=== PATIENT | male | born 1995 | race Caucasian/White ===

== ENCOUNTER 2021-11-29 21:14 | Observation (INO) ==
[2021-11-29 21:53] LABS: BASOPHILS % (AUTO) 0.1 % (0.0-3.0); HEMATOCRIT 42.8 % (42.0-52.0); HEMOGLOBIN 15.3 g/dl (14.0-18.0); IMMATURE GRANULOCYTE # (AUTO) 0.1 (0.0-1.0); IMMATURE GRANULOCYTE % (AUTO) 0.4 % (0.0-5.0); LYMPHOCYTES # (AUTO) 1.1 K/uL (0.60-3.4); LYMPHOCYTES % (AUTO) 7.9 (10.0-50.0); MEAN CORPUSCULAR HGB CONC 35.7 (31.8-35.4); MEAN CORPUSCULAR VOLUME 83.9 fl (80.0-94.0); MONOCYTES # (AUTO) 0.7 K/uL (0.4-2.0); MONOCYTES % (AUTO) 4.9 (0-10); NEUTROPHILS # (AUTO) 12.5 K/ul (2.0-6.9); NEUTROPHILS % (AUTO) 86.7 % (42.2-75.2); PLATELET COUNT 318 10^3/uL (140-440); RDW COEFFICIENT OF VARIATION 13.4 % (11.6-14.8); WHITE BLOOD COUNT 14.39 K/ul (4.2-10.2)
[2021-11-29] MEDS ORDERED: SODIUM CHLORIDE 1,000 ML IV STA (21:57)
[2021-11-29 22:00] LABS: ALANINE AMINOTRANSFERASE 31.8 U/L (0-50); ALBUMIN 5.48 g/dL (3.5-5.0); ASPARTATE AMINO TRANSFERASE 71.5 U/L (17-59); BILIRUBIN,TOTAL 0.89 mg/dL (0.2-1.3); BLOOD UREA NITROGEN 29.9 mg/dL (9-20); CALCIUM 10.42 mg/dL (8.4-10.2); CARBON DIOXIDE 25.5 mmol/L (22-30.0); CHLORIDE 90.9 mmol/L (98-107); CREATINE KINASE 959.6 U/L (55-170); CREATININE 1.62 mg/dL (0.60-1.10); GLUCOSE 159.6 mg/dL (74-106); MAGNESIUM 2.19 mg/dL (1.6-2.3); POTASSIUM 3.87 mmol/L (3.5-5.1); TOTAL PROTEIN 10.04 g/dL (6.3-8.2)
--- NOTE | 2021-11-29 22:05 | ED.PDOC ---
General ED Provider: Dr. ANTONIO MCMANUS Chief Complaint: Extremity Pain/Injury Stated Complaint: Patient is a 25 year old male who comes to the ER with complaints of cramping mostly on the lower extremities bilaterally. Has not seen a doctor in years. 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 Time Seen by Provider: 11/29/21 21:28 Mode of Arrival: Wheelchair Information Source: Patient Nursing and Triage Documentation Reviewed and Agree: Yes Does patient meet sepsis criteria?: No System Inflammatory Response Syndrome: Not Applicable Sepsis Protocol: For patient's 13 years and over: Temp is 96.8 and below OR 101 and greater Pulse >90 BPM Resp >20/minute Acutely Altered Mental Status Are patient's symptoms suggestive of a new infection, such as: -Pneumonia -Skin, Soft Tissue -Endocarditis -UTI -Bone, Joint Infection -Implantable Device -Acute Abdominal Infection -Wound Infection -Meningitis -Blood Stream Catheter Infection -Unknown Musculoskeletal Complaint Exam Lower Extremity Complaint/Exam Location of Pain: Reports Right, Left and Leg Mechanism of Injury: Reports No known trauma Onset/Duration: 1 pm today Symptoms Are: Still present Onset of Pain: Reports Immediate Initial Severity: Moderate Current Severity: Moderate Location: Reports Diffuse Character: Reports Spasmodic Alleviating: Reports Position Aggravating: Reports Movement and Prolonged standing Able to Bear Weight: Yes Associated Signs and Symptoms: Reports Weakness; Denies Swelling, Redness, Bruising, Fever, Numbness or Tingling DVT Risk Factors: Denies Smoking or Prior DVT Lower Extremity Findings: Present Tenderness (visible fasiculations on the thighs with dorsiflexion. ); Absent Swelling, Ecchymosis, Blisters, Other joint pain or Foreign body NV Bundle Intact Distal to Injury: Yes Gerard's Sign Present: No Differential Diagnoses: Strain, Sprain and Other (muscle cramps. ) Review of Systems Review Of Systems Constitutional: Reports No symptoms Eyes: Reports No symptoms Ears, Nose, Mouth, Throat: Reports No symptoms Respiratory: Reports No symptoms Cardiac: Reports No symptoms GI: Reports No symptoms Musculoskeletal: Reports Back pain, Muscle pain and Muscle stiffness Skin: Reports No symptoms Neurological: Reports Anxiety Hematologic/Lymphatic: Reports No symptoms All Other Systems: Reviewed and Negative [facility] Medical History (Updated 11/30/21 @ 00:04 by ANTONIO MCMANUS MD) No known health problems Social History (Updated 11/29/21 @ 21:20 by RAMAN ONEAL RN) Smoking and tobacco status: Never smoker Surgical History (Updated 11/29/21 @ 21:20 by RAMAN ONEAL RN) H/O oral surgery Physical Exam Physical Exam Appearance: Reports Ill-appearing Ill-appearing: Mild Pain Distress: Moderate Eyes: Reports VIDHI, EOMI and Conjunctiva clear ENT: Reports Nose normal and Oropharynx normal Neck: Supple Respiratory: Reports Airway patent, Breath sounds clear, Breath sounds equal and Breath sounds diminished Cardiovascular: Reports RRR, Pulses normal, No rub and No murmur GI/: Reports Soft, Nontender, No masses and Bowel sounds normal Musculoskeletal: Reports Other (Cramping thigns with dorsiflexion) Skin: Reports Warm Neurological: Reports Motor intact Psychiatric: Reports Anxious Re-Evaluation Re-Evaluation Time of Re-Evaluation: 00:02 Status: Improved Vital Signs Stable: Yes Pain Level: much improved Critical Care Note Critical Care Note Total Critical Care Time (mins): 0 Course Course Hematology/Chemistry: 11/29/21 21:40 11/29/21 21:40 Orders, Labs, Meds: Lab Review 11/29/21 11/29/21 11/29/21 21:40 21:40 21:40 WBC 14.39 H RBC 5.10 Hgb 15.3 Hct 42.8 MCV 83.9 MCH 30.0 MCHC 35.7 H RDW Coeff of Gunner 13.4 Plt Count 318 Immature Gran % (Auto) 0.4 Neut % (Auto) 86.7 H Lymph % (Auto) 7.9 L [place] % (Auto) 4.9 Eos % (Auto) 0.0 Baso % (Auto) 0.1 Neut # (Auto) 12.5 H Lymph # (Auto) 1.1 [place] # (Auto) 0.7 Eos # (Auto) 0.0 Baso # (Auto) 0.0 Immature Gran # (Auto) 0.1 Sodium 133.0 L Potassium 3.87 Chloride 90.9 L Carbon Dioxide 25.5 Anion Gap 20.47 BUN 29.9 H Creatinine 1.62 H Estimated GFR (MDRD) 51.00 BUN/Creatinine Ratio 18.45 Glucose 159.6 H Hemoglobin A1c Calcium 10.42 H Magnesium 2.19 Total Bilirubin 0.89 AST 71.5 H ALT 31.8 Alkaline Phosphatase 62.0 Total Creatine Kinase 959.6 H CK-MB (CK-2) 6.960 H* CK-MB (CK-2) % 0.7200 Troponin I < 0.012 Total Protein 10.04 H Albumin 5.48 H Globulin 4.56 Albumin/Globulin Ratio 1.20 TSH 1.020 SARS CoV-2 RNA Rapid ALVIN 11/29/21 11/29/21 21:46 22:10 WBC RBC Hgb Hct MCV MCH MCHC RDW Coeff of Gunner Plt Count Immature Gran % (Auto) Neut % (Auto) Lymph % (Auto) [place] % (Auto) Eos % (Auto) Baso % (Auto) Neut # (Auto) Lymph # (Auto) [place] # (Auto) Eos # (Auto) Baso # (Auto) Immature Gran # (Auto) Sodium Potassium Chloride Carbon Dioxide Anion Gap BUN Creatinine Estimated GFR (MDRD) BUN/Creatinine Ratio Glucose Hemoglobin A1c 5.57 Calcium Magnesium Total Bilirubin AST ALT Alkaline Phosphatase Total Creatine Kinase CK-MB (CK-2) CK-MB (CK-2) % Troponin I Total Protein Albumin Globulin Albumin/Globulin Ratio TSH SARS CoV-2 RNA Rapid ALVIN Negative Orders Category Date Time Status CBC W/ AUTO DIFF Stat LAB 11/29/21 21:40 Completed COMPREHENSIVE METABOLIC PANEL Stat LAB 11/29/21 21:40 Completed CREATINE KINASE Stat LAB 11/29/21 21:40 Completed HEMOGLOBIN A1C Stat LAB 11/29/21 21:46 Completed MAGNESIUM Stat LAB 11/29/21 21:40 Completed SARS COV-2 RNA RAPID ALVIN Stat LAB 11/29/21 22:10 Completed TROPONIN I Stat LAB 11/29/21 21:40 Completed TSH [THYROID STIMULATING HORMONE] Stat LAB 11/29/21 21:40 Completed URINALYSIS C & S IF INDICATED Stat LAB 11/29/21 23:45 Received URINE DRUG SCREEN (RAPID FOR ED) [DRUG SCREEN, URINE, LAB 11/29/21 23:45 Received RAPID] Stat Sodium Chloride 0.9% [Sodium Chloride] 1,000 ml MEDS 11/29/21 21:57 Discontinued IV BOLUS Medications Generic Name Dose Route Start Last Admin Trade Name Freq PRN Reason Stop Dose Admin Acetaminophen 650 mg 11/29/21 23:49 Acetaminophen 325 Mg Tablet PO Q4H PRN Fever and Mild Pain Hydromorphone HCl 1 mg 11/29/21 23:49 Hydromorphone Hcl 1 Mg/Ml Syringe IVP Q8HR PRN Severe Pain Sodium Chloride 1,000 mls @ 150 mls/hr 11/29/21 23:45 Sodium Chloride IV .Q6H40M [facility] Ibuprofen 600 mg 11/29/21 23:49 Ibuprofen 600 Mg Tablet PO Q6H PRN Mild Pain Ondansetron HCl 4 mg 11/29/21 23:49 Ondansetron Hcl/Pf 4 Mg/2 Ml Sdv IVP Q6H PRN Nausea / Vomiting Discontinued Medications Generic Name Dose Route Start Last Admin Trade Name Freq PRN Reason Stop Dose Admin Sodium Chloride 1,000 mls @ 1,000 mls/hr 11/29/21 21:57 11/29/21 22:36 Sodium Chloride IV 11/29/21 22:56 1,000 mls/hr BOLUS STA Administration Vital Signs: Temp Pulse Resp BP Pulse Ox 11/29/21 21:14 99.0 F 79 18 146/89 H 97 Discharge Plan Discharge Patient Disposition: PLACED OBSERVATION Discharge Problem: Rhabdomyolysis, Acute dehydration, Acute renal failure ED Provider: ANTONIO MCMANUS Condition: Fair Physician Progress Note: []
[2021-11-29 22:12] LABS: TROPONIN I < 0.012 ng/ml (0.0000-0.120)
[2021-11-29] MEDS ORDERED: MOTRIN PO PRN (23:49)
[2021-11-29] MEDS ORDERED: ZOFRAN 4 MG/2 ML IVP PRN (23:49)
[2021-11-29] MEDS ORDERED: TYLENOL PO PRN (23:49)
[2021-11-29] MEDS ORDERED: DILAUDID 1 MG/ML SYRINGE IVP PRN (23:49)
[2021-11-30 00:06] LABS: BILIRUBIN,URINE Negative (NEGATIVE); CLARITY,URINE Clear (CLEAR); COLOR,URINE Yellow (YELLOW); GLUCOSE, URINE (UA) Negative (NEGATIVE); KETONES,URINE Trace (NEGATIVE); LEUKOCYTE ESTERASE ,URINE Negative (NEGATIVE); NITRITE,URINE Negative (NEGATIVE); PH,URINE 5.5 (5-9); PROTEIN,URINE Trace (NEGATIVE); URINE, BLOOD 1+ (NEGATIVE); UROBILINOGEN,URINE 0.2 (0.2)
[2021-11-30 00:07] LABS: MUCUS,URINE 2+ (NOT PRESENT)
[2021-11-30 00:08] LABS: AMPHETAMINE SCREEN,URINE NEGATIVE (NEGATIVE); BARBITURATE SCREEN,URINE NEGATIVE (NEGATIVE); BENZODIAZEPINES SCREEN,URINE NEGATIVE (NEGATIVE); CANNABINOID SCREEN,URINE POSITIVE (NEGATIVE); COCAIN SCREEN,URINE NEGATIVE (NEGATIVE); METHADONE URINE SCREEN NEGATIVE (NEGATIVE); METHAMPHETAMINES SCREEN,URINE NEGATIVE (NEGATIVE); OPIATE SCREEN,URINE NEGATIVE (NEGATIVE); OXYCODONE URINE SCREEN NEGATIVE (NEGATIVE); PHENCYCLIDINE SCREEN,URINE NEGATIVE (NEGATIVE); PROPOXYPHENE URINE SCREEN NEGATIVE (NEGATIVE); TRICYCLIC ANTIDEPRESSANTS URIN NEGATIVE (NEGATIVE)
[2021-11-30] MEDS: SODIUM CHLORIDE 1,000 ML IV SCH ×4 (00:42→23:56)
[2021-11-30 00:51] VITALS: BMI 31.0
[2021-11-30 05:41] LABS: BASOPHILS % (AUTO) 0.3 % (0.0-3.0); EOSINOPHILS % (AUTO) 0.3 % (0.0-7.0); HEMATOCRIT 41.4 % (42.0-52.0); HEMOGLOBIN 14.5 g/dl (14.0-18.0); IMMATURE GRANULOCYTE # (AUTO) 0.1 (0.0-1.0); IMMATURE GRANULOCYTE % (AUTO) 0.5 % (0.0-5.0); LYMPHOCYTES # (AUTO) 2.7 K/uL (0.60-3.4); MEAN CORPUSCULAR HEMOGLOBIN 29.7 pg (27.0-31.0); MEAN CORPUSCULAR VOLUME 84.7 fl (80.0-94.0); MONOCYTES # (AUTO) 1.3 K/uL (0.4-2.0); MONOCYTES % (AUTO) 11.8 (0-10); NEUTROPHILS # (AUTO) 6.8 K/ul (2.0-6.9); NEUTROPHILS % (AUTO) 62.1 % (42.2-75.2); PLATELET COUNT 320 10^3/uL (140-440); RDW COEFFICIENT OF VARIATION 13.5 % (11.6-14.8); RED BLOOD COUNT 4.89 10^6/ul (4.70-6.10); WHITE BLOOD COUNT 10.86 K/ul (4.2-10.2)
[2021-11-30 05:56] LABS: ALANINE AMINOTRANSFERASE 26.8 U/L (0-50); ALBUMIN 4.72 g/dL (3.5-5.0); ALKALINE PHOSPHATASE 47.8 U/L (38-126); ASPARTATE AMINO TRANSFERASE 65.7 U/L (17-59); BILIRUBIN,TOTAL 0.84 mg/dL (0.2-1.3); BLOOD UREA NITROGEN 22.4 mg/dL (9-20); CALCIUM 9.14 mg/dL (8.4-10.2); CARBON DIOXIDE 27.2 mmol/L (22-30.0); CHLORIDE 97.4 mmol/L (98-107); CREATININE 1.19 mg/dL (0.60-1.10); GLUCOSE 103.7 mg/dL (74-106); POTASSIUM 3.26 mmol/L (3.5-5.1); SODIUM 135.7 mmol/L (134.5-145); TOTAL PROTEIN 8.27 g/dL (6.3-8.2)
[2021-11-30 06:12] LABS: CREATINE KINASE MB 8.97 ng/ml (0.0-2.38)
[2021-11-30] MEDS ORDERED: WATER IVP SCH (09:00)
[2021-11-30] MEDS ORDERED: WATER IV SCH ×2 (09:00→17:00)
[2021-11-30] MEDS ORDERED: DEXTROSE 5% IV SCH ×2 (09:00→17:00)
[2021-11-30] MEDS ORDERED: DEXTROSE 5% IVP SCH (09:00)
[2021-11-30] MEDS ORDERED: SODIUM BICARBONATE IV SCH ×2 (09:00→17:00)
[2021-11-30] MEDS ORDERED: SODIUM BICARBONATE IVP SCH (09:00)
[2021-11-30] MEDS: K-DUR PO SCH ×2 (09:31→17:23)
[2021-11-30 15:56] LABS: VBG HCO3 33.5 (22-26); VBG OXYGEN SATURATION 87.8 (60-80)
[2021-11-30 15:58] LABS: VBG PH 7.48 (7.30-7.40)
[2021-11-30 16:01] LABS: BLOOD UREA NITROGEN 19.3 mg/dL (9-20); CALCIUM 8.49 mg/dL (8.4-10.2); CHLORIDE 96.6 mmol/L (98-107); CREATININE 0.94 mg/dL (0.60-1.10); GLUCOSE 111.3 mg/dL (74-106); POTASSIUM 3.48 mmol/L (3.5-5.1); SODIUM 135.5 mmol/L (134.5-145)
[2021-11-30 16:50] LABS: CREATINE KINASE MB 10.1 ng/ml (0.0-2.38)
[2021-11-30 23:47] LABS: BLOOD UREA NITROGEN 17.2 mg/dL (9-20); CALCIUM 8.37 mg/dL (8.4-10.2); CARBON DIOXIDE 33.2 mmol/L (22-30.0); CHLORIDE 97.7 mmol/L (98-107); CREATINE KINASE 1439.4 U/L (55-170); CREATININE 0.93 mg/dL (0.60-1.10); GLUCOSE 101.1 mg/dL (74-106); POTASSIUM 3.99 mmol/L (3.5-5.1); SODIUM 136.7 mmol/L (134.5-145)
--- NOTE | 2021-11-30 23:58 | PCM.PROG ---
Date Seen by Provider: 11/30/21 Time Seen by Provider: 09:00 Subjective: Feels much better, ready to go home. Objective: Vitals: T=97.9 F, P=84, R=18, YI=650/83, SPO2=98 HEENT: [wnl] Neck: [supple Lungs: [clear] CVS: [RRR] Abdomen: [soft] Extremities: [intact] Neurological: [intact] Skin: [wnnl] Lab/Tests/Diagnostic Imaging: [See labs, CPK total continuing a slow climb, renal function slowly better] (1) Rhabdomyolysis: Status: Acute Code(s): M62.82 - Rhabdomyolysis SNOMED Code(s): 141130439 Assessment: CPK still not peaked yet, but not dangerously high numbers. (2) Acute dehydration: Status: Acute Code(s): E86.0 - Dehydration SNOMED Code(s): 53686507 Assessment: Resolved with IVF. (3) Acute renal failure: Status: Acute Code(s): N17.9 - Acute kidney failure, unspecified SNOMED Code(s): 72387853 Assessment: Slowly improving with hydration. Plan: Continue hydration. Try infusions of D5W with 150 mEq of HCO3 (bicarb, 3 amps) in each liter. This will help alkalinize urine and blood, promoting resolution of elevated CPK and providing renal protection. Just need to monitor serum pH, keep at 7.5 or under.
[2021-12-01 00:06] LABS: CREATINE KINASE MB 8.71 ng/ml (0.0-2.38)
[2021-12-01 05:51] LABS: BASOPHILS % (AUTO) 0.5 % (0.0-3.0); EOSINOPHILS # (AUTO) 0.1 K/ul (0.0-0.7); EOSINOPHILS % (AUTO) 1.1 % (0.0-7.0); HEMATOCRIT 39.1 % (42.0-52.0); IMMATURE GRANULOCYTE % (AUTO) 0.3 % (0.0-5.0); LYMPHOCYTES # (AUTO) 3.7 K/uL (0.60-3.4); LYMPHOCYTES % (AUTO) 48.1 (10.0-50.0); MEAN CORPUSCULAR HEMOGLOBIN 29.1 pg (27.0-31.0); MEAN CORPUSCULAR HGB CONC 33.2 (31.8-35.4); MEAN CORPUSCULAR VOLUME 87.5 fl (80.0-94.0); MONOCYTES # (AUTO) 0.7 K/uL (0.4-2.0); MONOCYTES % (AUTO) 8.6 (0-10); NEUTROPHILS # (AUTO) 3.2 K/ul (2.0-6.9); NEUTROPHILS % (AUTO) 41.4 % (42.2-75.2); PLATELET COUNT 277 10^3/uL (140-440); RDW COEFFICIENT OF VARIATION 13.5 % (11.6-14.8); RED BLOOD COUNT 4.47 10^6/ul (4.70-6.10); WHITE BLOOD COUNT 7.59 K/ul (4.2-10.2)
[2021-12-01 06:04] LABS: ALBUMIN 3.74 g/dL (3.5-5.0); ASPARTATE AMINO TRANSFERASE 90.1 U/L (17-59); BILIRUBIN,TOTAL 0.34 mg/dL (0.2-1.3); BLOOD UREA NITROGEN 16.2 mg/dL (9-20); CALCIUM 8.3 mg/dL (8.4-10.2); CARBON DIOXIDE 32.9 mmol/L (22-30.0); CHLORIDE 101.2 mmol/L (98-107); CREATINE KINASE 1494.5 U/L (55-170); CREATININE 0.91 mg/dL (0.60-1.10); GLUCOSE 100.2 mg/dL (74-106); POTASSIUM 3.98 mmol/L (3.5-5.1); SODIUM 136.6 mmol/L (134.5-145); TOTAL PROTEIN 6.74 g/dL (6.3-8.2)
[2021-12-01 06:25] LABS: CREATINE KINASE MB 7.38 ng/ml (0.0-2.38)
[2021-12-01] MEDS: SODIUM CHLORIDE 1,000 ML IV SCH ×4 (06:58→21:47)
--- NOTE | 2021-12-01 11:21 | PCM.PROG ---
Date Seen by Provider: 12/01/21 Time Seen by Provider: 11:18 Subjective: pt feels improved despite rising cpk Objective: Vitals: T=97.9 F, P=72, R=16, XW=095/88, SPO2=99 HEENT: []conjunctiva clear Neck: []supple Lungs: [] no respiratory distress CVS: [] Abdomen: []nondistended Extremities: []diallo Neurological: []alert and oriented Skin: [] Lab/Tests/Diagnostic Imaging: [] cpk [id number] (1) Rhabdomyolysis: Status: Acute Code(s): M62.82 - Rhabdomyolysis SNOMED Code(s): 276795105 (2) Acute dehydration: Status: Acute Code(s): E86.0 - Dehydration SNOMED Code(s): 29915022 (3) Acute renal failure: Status: Acute Code(s): N17.9 - Acute kidney failure, unspecified SNOMED Code(s): 61393293 Plan: continue iv hydration, d/w pt what re exposure to heat stress would be like, may d/c home tomorrow if cpk recedes care to Dr Smith at 19:00
[2021-12-02] MEDS: SODIUM CHLORIDE 1,000 ML IV SCH (05:06)
[2021-12-02 05:34] LABS: BASOPHILS % (AUTO) 0.6 % (0.0-3.0); EOSINOPHILS # (AUTO) 0.1 K/ul (0.0-0.7); EOSINOPHILS % (AUTO) 1.8 % (0.0-7.0); HEMATOCRIT 39.6 % (42.0-52.0); HEMOGLOBIN 13.4 g/dl (14.0-18.0); IMMATURE GRANULOCYTE % (AUTO) 0.3 % (0.0-5.0); LYMPHOCYTES # (AUTO) 3.9 K/uL (0.60-3.4); LYMPHOCYTES % (AUTO) 53.6 (10.0-50.0); MEAN CORPUSCULAR HEMOGLOBIN 29.7 pg (27.0-31.0); MEAN CORPUSCULAR HGB CONC 33.8 (31.8-35.4); MEAN CORPUSCULAR VOLUME 87.8 fl (80.0-94.0); MONOCYTES # (AUTO) 0.6 K/uL (0.4-2.0); NEUTROPHILS # (AUTO) 2.6 K/ul (2.0-6.9); NEUTROPHILS % (AUTO) 35.7 % (42.2-75.2); PLATELET COUNT 264 10^3/uL (140-440); RDW COEFFICIENT OF VARIATION 13.5 % (11.6-14.8); RED BLOOD COUNT 4.51 10^6/ul (4.70-6.10); WHITE BLOOD COUNT 7.22 K/ul (4.2-10.2)
[2021-12-02 05:41] LABS: ALANINE AMINOTRANSFERASE 40.3 U/L (0-50); ALBUMIN 3.82 g/dL (3.5-5.0); ALKALINE PHOSPHATASE 43.1 U/L (38-126); ASPARTATE AMINO TRANSFERASE 121.4 U/L (17-59); BILIRUBIN,TOTAL 0.34 mg/dL (0.2-1.3); BLOOD UREA NITROGEN 13.3 mg/dL (9-20); CALCIUM 8.49 mg/dL (8.4-10.2); CARBON DIOXIDE 29.7 mmol/L (22-30.0); CHLORIDE 102.9 mmol/L (98-107); CREATININE 0.94 mg/dL (0.60-1.10); GLUCOSE 95.7 mg/dL (74-106); POTASSIUM 4.15 mmol/L (3.5-5.1); SODIUM 138.1 mmol/L (134.5-145); TOTAL PROTEIN 6.83 g/dL (6.3-8.2)
[2021-12-02 05:48] LABS: CREATINE KINASE 2898.2 U/L (55-170)
[2021-12-02 06:10] LABS: CREATINE KINASE MB 5.12 ng/ml (0.0-2.38)
[2021-12-02 10:43] VITALS: BP 132/81; TEMP 97.7
--- NOTE | 2021-12-02 22:51 | PCM.DC ---
Final Diagnosis: Heat exhaustion Dehydration Acute kidney injury Rhabdomyolysis Admit date - 11/29/21 Discharge date - 12/02/21 Physical Exam Appearance: Well-appearing Ill-appearing: None Pain Distress: None Eyes: VIDHI ENT: Oropharynx normal Neck: Supple Respiratory: Airway patent and Breath sounds clear Cardiovascular: RRR and Pulses normal GI/: Soft and Nontender Musculoskeletal: Normal strength and ROM intact Skin: Warm and Dry Neurological: Sensation intact, Motor intact and Alert Psychiatric: Affect appropriate and Mood appropriate (1) Rhabdomyolysis: Status: Acute Code(s): M62.82 - Rhabdomyolysis SNOMED Code(s): 276535418 Qualifiers: Rhabdomyolysis type: non-traumatic Qualified Code(s): M62.82 - Rhabdomyolysis (2) Acute dehydration: Status: Acute Code(s): E86.0 - Dehydration SNOMED Code(s): 70291319 (3) Acute kidney injury: Status: Acute Code(s): N17.9 - Acute kidney failure, unspecified SNOMED Code(s): 32326283 (4) Heat exhaustion: Status: Acute Code(s): T67.5XXA - Heat exhaustion, unspecified, initial encounter SNOMED Code(s): 56326259 Reason for Hospitalization: Working at a [employer], hot environment, not drinking enough, heat exhaust ion and dehydration resulting in mild CARO and rhabdomyolysis Prognosis/Condition at Discharge: Good, improved. Medications at Discharge: Ambulatory Orders None Medication Instructions Recorded 1 [No Reported Medications] 11/29/21 Lab/Diagnostics: Laboratory Tests 11/29/21 11/29/21 11/29/21 21:40 21:40 21:40 WBC 14.39 H RBC 5.10 Hgb 15.3 Hct 42.8 MCV 83.9 MCH 30.0 MCHC 35.7 H RDW Coeff of Gunner 13.4 Plt Count 318 Immature Gran % (Auto) 0.4 Neut % (Auto) 86.7 H Lymph % (Auto) 7.9 L [place] % (Auto) 4.9 Eos % (Auto) 0.0 Baso % (Auto) 0.1 Neut # (Auto) 12.5 H Lymph # (Auto) 1.1 [place] # (Auto) 0.7 Eos # (Auto) 0.0 Baso # (Auto) 0.0 Immature Gran # (Auto) 0.1 VBG pH VBG pCO2 VBG pO2 VBG HCO3 VBG O2 Saturation Sodium 133.0 L Potassium 3.87 Chloride 90.9 L Carbon Dioxide 25.5 Anion Gap 20.47 BUN 29.9 H Creatinine 1.62 H Estimated GFR (MDRD) 51.00 BUN/Creatinine Ratio 18.45 Glucose 159.6 H Hemoglobin A1c Calcium 10.42 H Magnesium 2.19 Total Bilirubin 0.89 AST 71.5 H ALT 31.8 Alkaline Phosphatase 62.0 Total Creatine Kinase 959.6 H CK-MB (CK-2) 6.960 H* CK-MB (CK-2) % 0.7200 Troponin I < 0.012 Total Protein 10.04 H Albumin 5.48 H Globulin 4.56 Albumin/Globulin Ratio 1.20 TSH 1.020 Urine Color Urine Clarity Urine pH Ur Specific [place] Urine Protein Urine Glucose (UA) Urine Ketones Urine Blood Urine Nitrite Urine Bilirubin Urine Urobilinogen Ur Leukocyte Esterase Urine Microscopic RBC Ur Squamous Epith Cells Hyaline Casts Urine Mucus Urine Opiates Screen Ur Oxycodone Screen Urine Methadone Screen Ur Propoxyphene Screen Ur Barbiturates Screen U Tricyclic Antidepress Ur Phencyclidine Scrn Ur Amphetamine Screen U Methamphetamines Scrn U Benzodiazepines Scrn Urine Cocaine Screen U Cannabinoids Screen SARS CoV-2 RNA Rapid ALVIN 11/29/21 11/29/21 11/29/21 21:46 22:10 23:45 WBC RBC Hgb Hct MCV MCH MCHC RDW Coeff of Gunner Plt Count Immature Gran % (Auto) Neut % (Auto) Lymph % (Auto) [place] % (Auto) Eos % (Auto) Baso % (Auto) Neut # (Auto) Lymph # (Auto) [place] # (Auto) Eos # (Auto) Baso # (Auto) Immature Gran # (Auto) VBG pH VBG pCO2 VBG pO2 VBG HCO3 VBG O2 Saturation Sodium Potassium Chloride Carbon Dioxide Anion Gap BUN Creatinine Estimated GFR (MDRD) BUN/Creatinine Ratio Glucose Hemoglobin A1c 5.57 Calcium Magnesium Total Bilirubin AST ALT Alkaline Phosphatase Total Creatine Kinase CK-MB (CK-2) CK-MB (CK-2) % Troponin I Total Protein Albumin Globulin Albumin/Globulin Ratio TSH Urine Color Yellow Urine Clarity Clear Urine pH 5.5 Ur Specific [place] 1.025 Urine Protein Trace H Urine Glucose (UA) Negative Urine Ketones Trace H Urine Blood 1+ H Urine Nitrite Negative Urine Bilirubin Negative Urine Urobilinogen 0.2 Ur Leukocyte Esterase Negative Urine Microscopic RBC 2-5 Ur Squamous Epith Cells 2-5 Hyaline Casts 5-10 Urine Mucus 2+ Urine Opiates Screen Ur Oxycodone Screen Urine Methadone Screen Ur Propoxyphene Screen Ur Barbiturates Screen U Tricyclic Antidepress Ur Phencyclidine Scrn Ur Amphetamine Screen U Methamphetamines Scrn U Benzodiazepines Scrn Urine Cocaine Screen U Cannabinoids Screen SARS CoV-2 RNA Rapid ALVIN Negative 11/29/21 11/30/21 11/30/21 23:45 05:16 05:16 WBC 10.86 H RBC 4.89 Hgb 14.5 Hct 41.4 L MCV 84.7 MCH 29.7 MCHC 35.0 RDW Coeff of Gunner 13.5 Plt Count 320 Immature Gran % (Auto) 0.5 Neut % (Auto) 62.1 Lymph % (Auto) 25.0 [place] % (Auto) 11.8 H Eos % (Auto) 0.3 Baso % (Auto) 0.3 Neut # (Auto) 6.8 Lymph # (Auto) 2.7 [place] # (Auto) 1.3 Eos # (Auto) 0.0 Baso # (Auto) 0.0 Immature Gran # (Auto) 0.1 VBG pH VBG pCO2 VBG pO2 VBG HCO3 VBG O2 Saturation Sodium 135.7 Potassium 3.26 L Chloride 97.4 L Carbon Dioxide 27.2 Anion Gap 14.36 BUN 22.4 H Creatinine 1.19 H Estimated GFR (MDRD) 73.00 BUN/Creatinine Ratio 18.82 Glucose 103.7 D Hemoglobin A1c Calcium 9.14 Magnesium Total Bilirubin 0.84 AST 65.7 H ALT 26.8 Alkaline Phosphatase 47.8 Total Creatine Kinase 1077.0 H CK-MB (CK-2) 8.970 H* CK-MB (CK-2) % 0.8300 Troponin I Total Protein 8.27 H Albumin 4.72 Globulin 3.55 Albumin/Globulin Ratio 1.32 TSH Urine Color Urine Clarity Urine pH Ur Specific [place] Urine Protein Urine Glucose (UA) Urine Ketones Urine Blood Urine Nitrite Urine Bilirubin Urine Urobilinogen Ur Leukocyte Esterase Urine Microscopic RBC Ur Squamous Epith Cells Hyaline Casts Urine Mucus Urine Opiates Screen Negative Ur Oxycodone Screen Negative Urine Methadone Screen Negative Ur Propoxyphene Screen Negative Ur Barbiturates Screen Negative U Tricyclic Antidepress Negative Ur Phencyclidine Scrn Negative Ur Amphetamine Screen Negative U Methamphetamines Scrn Negative U Benzodiazepines Scrn Negative Urine Cocaine Screen Negative U Cannabinoids Screen Positive H SARS CoV-2 RNA Rapid ALVIN 11/30/21 11/30/21 11/30/21 15:43 15:45 23:12 WBC RBC Hgb Hct MCV MCH MCHC RDW Coeff of Gunner Plt Count Immature Gran % (Auto) Neut % (Auto) Lymph % (Auto) [place] % (Auto) Eos % (Auto) Baso % (Auto) Neut # (Auto) Lymph # (Auto) [place] # (Auto) Eos # (Auto) Baso # (Auto) Immature Gran # (Auto) VBG pH 7.48 H VBG pCO2 45 VBG pO2 50 H VBG HCO3 33.5 H VBG O2 Saturation 87.8 H Sodium 135.5 136.7 Potassium 3.48 L 3.99 Chloride 96.6 L 97.7 L Carbon Dioxide 33.0 H 33.2 H Anion Gap 9.38 9.79 BUN 19.3 17.2 Creatinine 0.94 0.93 Estimated GFR (MDRD) 96.00 97.00 BUN/Creatinine Ratio 20.53 18.49 Glucose 111.3 H 101.1 Hemoglobin A1c Calcium 8.49 8.37 L Magnesium Total Bilirubin AST ALT Alkaline Phosphatase Total Creatine Kinase 1347.0 H 1439.4 H CK-MB (CK-2) 10.100 H* 8.710 H* CK-MB (CK-2) % 0.7400 0.6000 Troponin I Total Protein Albumin Globulin Albumin/Globulin Ratio TSH Urine Color Urine Clarity Urine pH Ur Specific [place] Urine Protein Urine Glucose (UA) Urine Ketones Urine Blood Urine Nitrite Urine Bilirubin Urine Urobilinogen Ur Leukocyte Esterase Urine Microscopic RBC Ur Squamous Epith Cells Hyaline Casts Urine Mucus Urine Opiates Screen Ur Oxycodone Screen Urine Methadone Screen Ur Propoxyphene Screen Ur Barbiturates Screen U Tricyclic Antidepress Ur Phencyclidine Scrn Ur Amphetamine Screen U Methamphetamines Scrn U Benzodiazepines Scrn Urine Cocaine Screen U Cannabinoids Screen SARS CoV-2 RNA Rapid ALVIN 12/01/21 12/01/21 12/02/21 05:02 05:02 05:08 WBC 7.59 7.22 RBC 4.47 L 4.51 L Hgb 13.0 L 13.4 L Hct 39.1 L 39.6 L MCV 87.5 87.8 MCH 29.1 29.7 MCHC 33.2 33.8 RDW Coeff of Gunner 13.5 13.5 Plt Count 277 264 Immature Gran % (Auto) 0.3 0.3 Neut % (Auto) 41.4 L 35.7 L Lymph % (Auto) 48.1 53.6 H [place] % (Auto) 8.6 8.0 Eos % (Auto) 1.1 1.8 Baso % (Auto) 0.5 0.6 Neut # (Auto) 3.2 2.6 Lymph # (Auto) 3.7 H 3.9 H [place] # (Auto) 0.7 0.6 Eos # (Auto) 0.1 0.1 Baso # (Auto) 0.0 0.0 Immature Gran # (Auto) 0.0 0.0 VBG pH VBG pCO2 VBG pO2 VBG HCO3 VBG O2 Saturation Sodium 136.6 Potassium 3.98 Chloride 101.2 Carbon Dioxide 32.9 H Anion Gap 6.48 BUN 16.2 Creatinine 0.91 Estimated GFR (MDRD) 100.00 BUN/Creatinine Ratio 17.80 Glucose 100.2 Hemoglobin A1c Calcium 8.30 L Magnesium Total Bilirubin 0.34 AST 90.1 H ALT 29.0 Alkaline Phosphatase 43.0 Total Creatine Kinase 1494.5 H CK-MB (CK-2) 7.380 H* CK-MB (CK-2) % 0.4900 Troponin I Total Protein 6.74 Albumin 3.74 Globulin 3.00 Albumin/Globulin Ratio 1.24 TSH Urine Color Urine Clarity Urine pH Ur Specific [place] Urine Protein Urine Glucose (UA) Urine Ketones Urine Blood Urine Nitrite Urine Bilirubin Urine Urobilinogen Ur Leukocyte Esterase Urine Microscopic RBC Ur Squamous Epith Cells Hyaline Casts Urine Mucus Urine Opiates Screen Ur Oxycodone Screen Urine Methadone Screen Ur Propoxyphene Screen Ur Barbiturates Screen U Tricyclic Antidepress Ur Phencyclidine Scrn Ur Amphetamine Screen U Methamphetamines Scrn U Benzodiazepines Scrn Urine Cocaine Screen U Cannabinoids Screen SARS CoV-2 RNA Rapid ALVIN 12/02/21 05:08 WBC RBC Hgb Hct MCV MCH MCHC RDW Coeff of Gunner Plt Count Immature Gran % (Auto) Neut % (Auto) Lymph % (Auto) [place] % (Auto) Eos % (Auto) Baso % (Auto) Neut # (Auto) Lymph # (Auto) [place] # (Auto) Eos # (Auto) Baso # (Auto) Immature Gran # (Auto) VBG pH VBG pCO2 VBG pO2 VBG HCO3 VBG O2 Saturation Sodium 138.1 Potassium 4.15 Chloride 102.9 Carbon Dioxide 29.7 Anion Gap 9.65 BUN 13.3 Creatinine 0.94 Estimated GFR (MDRD) 96.00 BUN/Creatinine Ratio 14.14 Glucose 95.7 Hemoglobin A1c Calcium 8.49 Magnesium Total Bilirubin 0.34 AST 121.4 H D ALT 40.3 Alkaline Phosphatase 43.1 Total Creatine Kinase 2898.2 H CK-MB (CK-2) 5.120 H* CK-MB (CK-2) % 0.1700 Troponin I Total Protein 6.83 Albumin 3.82 Globulin 3.01 Albumin/Globulin Ratio 1.26 TSH Urine Color Urine Clarity Urine pH Ur Specific [place] Urine Protein Urine Glucose (UA) Urine Ketones Urine Blood Urine Nitrite Urine Bilirubin Urine Urobilinogen Ur Leukocyte Esterase Urine Microscopic RBC Ur Squamous Epith Cells Hyaline Casts Urine Mucus Urine Opiates Screen Ur Oxycodone Screen Urine Methadone Screen Ur Propoxyphene Screen Ur Barbiturates Screen U Tricyclic Antidepress Ur Phencyclidine Scrn Ur Amphetamine Screen U Methamphetamines Scrn U Benzodiazepines Scrn Urine Cocaine Screen U Cannabinoids Screen SARS CoV-2 RNA Rapid ALVIN Education Provided to Patient and Family: Per nursing staff. Follow-ups: With PCP next week, sooner if needed. Discharge Disposition: Home Hospital Course: Healthy 25 y/o admit with mild heat exhaustion resulting in mild volume depletion and secondary mild CARO. Mild rhabdomyolysis in addition. Treated with IVF and alkalinizing urine briefly. Heat exhaustion sx quickly resolved, as did the volume depletion. Renal function returned to normal. CPK maxed out at around 1500 and will come down on its own with no clinical concerns. This discharge summary prepared with a [id number] exam with total time of preparation for d/c of 40 minutes. Plan: Home, stay well hydrated, avoid heat stress environments.
== END 2021-12-02 13:30 | disposition home or self-care (01) ==
LOC: ED 21:14 → MEDSURG A 21:14
PROVIDERS: ADMIT Internal Medicine Geriatric Medicine; ATTEND Emergency Medicine
DX: R74.8 Abnormal levels of other serum enzymes; Z20.822 Contact with and (suspected) exposure to COVID-19; E86.0 Dehydration; M62.82 Rhabdomyolysis; T67.5XXA Heat exhaustion, unspecified, initial encounter; N17.9 Acute kidney failure, unspecified